=== PATIENT | male | born 1955 | race Caucasian/White ===

== ENCOUNTER → 2016-09-02 | Outpatient (CLI) | payer OTHER | LOC: HEART 5 09:27 | DX: J44.9 Chronic obstructive pulmonary disease, unspecified (principal); R94.2 Abnormal results of pulmonary function studies; F17.210 Nicotine dependence, cigarettes, uncomplicated | CPT/HCPCS: 94060; 94729 ==

== ENCOUNTER → 2016-09-21 | Outpatient (CLI) | payer OTHER | LOC: CT 14:44 | DX: F17.210 Nicotine dependence, cigarettes, uncomplicated (principal); R91.1 Solitary pulmonary nodule; J47.9 Bronchiectasis, uncomplicated; R91.8 Other nonspecific abnormal finding of lung field; J98.11 Atelectasis; I25.10 Atherosclerotic heart disease of native coronary artery without angina pectoris | CPT/HCPCS: G0297 ==

== ENCOUNTER → 2017-01-21 | Outpatient (CLI) | payer OTHER | LOC: CT 13:00 | DX: R91.8 Other nonspecific abnormal finding of lung field (principal); R91.1 Solitary pulmonary nodule | CPT/HCPCS: 71250 ==

== ENCOUNTER → 2020-12-05 | Outpatient (CLI) | payer MEDICARE, OTHER | LOC: KOH-I 11:15 | DX: F17.210 Nicotine dependence, cigarettes, uncomplicated (principal); R91.1 Solitary pulmonary nodule; I71.2 Thoracic aortic aneurysm, without rupture | CPT/HCPCS: 71271 ==